=== PATIENT | female | born 1955 | race African-American/Black ===

== ENCOUNTER 2020-09-22 21:32 | Emergency (ER) | payer MEDICARE, MEDICAID ==
[~2020-09-22] VITALS: Ht 165.1 cm; Wt 77.0 kg
[~2020-09-22 21:32] MED LIST: AMLO5TAB4; ASPI-1497 PO; ATAZ300C; BACL-141 PO; CHLO15MO3; DESCOVY PO; EMTR1TAB11; ESTR0.6264; EVOTAZ PO; FISH OIL PO; HAIR/SKIN/NAIL PO; NORV1; PENTOXIFYLLINE PO; PRAV20TA57
[2020-09-22 22:39] VITALS: BP 142/79
== END 2020-09-22 22:40 | disposition home or self-care (01) ==
LOC: ER 21:32
DX: Z13.9 Encounter for screening, unspecified (principal); R22.9 Localized swelling, mass and lump, unspecified; Z79.899 Other long term (current) drug therapy; Z88.5 Allergy status to narcotic agent
CPT/HCPCS: 99281